=== PATIENT | male | born 1975 | race Caucasian/White ===

== ENCOUNTER 2017-03-31 18:08 | Emergency (ER) | payer OTHER ==
[2017-03-31 21:02] LABS: Basophils # (Auto) 0.1 K/mm3 (0.0-0.1); Basophils % (Auto) 0.7 % (0.0-1.8); Eosinophils # (Auto) 1.3 K/mm3 (0.0-0.4); Eosinophils % (Auto) 10.5 % (0.0-4.3); Hematocrit 48.9 % (35.5-45.6); Hemoglobin 16.4 gm/dl (11.8-15.2); Lymphocytes # (Auto) 3.5 K/mm3 (1.2-5.4); Lymphocytes % (Auto) 28.8 % (13.4-35.0); Mean Corpuscular HGB Conc 34 % (32-34); Mean Corpuscular Hemoglobin 31 pg (28-32); Mean Corpuscular Volume 92 fl (84-94); Monocytes # (Auto) 0.9 K/mm3 (0.0-0.8); Monocytes % (Auto) 7.7 % (0.0-7.3); Platelet Count 229 K/mm3 (140-440); Red Blood Count 5.33 M/mm3 (3.65-5.03); Red Cell Distribution Width 13.1 % (13.2-15.2)
[2017-03-31 21:06] LABS: Bilirubin,Urine NEG (Negative); Blood,Urine NEG (Negative); Color,Urine Yellow (Yellow); Nitrite,Urine NEG (Negative); Protein,Urine <15 mg/dL mg/dL (Negative); Urobilinogen,Urine < 2.0 mg/dL (<2.0)
[2017-03-31 21:09] LABS: Alanine Aminotransferase 75 units/L (7-56); Albumin 4.3 g/dL (3.9-5); BUN/Creatinine Ratio 27; Blood Urea Nitrogen 19 mg/dL (9-20); Calcium 9.3 mg/dL (8.4-10.2); Hemolysis Index 10
[2017-03-31 21:13] LABS: WBC,Urine < 1.0 /HPF (0.0-6.0)
[2017-04-01] MEDS ORDERED: TORADOL IV ONE (12:19)
--- NOTE | 2017-04-01 14:51 | Cat Scan Report ---
FINAL REPORT EXAM: CT ABDOMEN PELVIS W CON HISTORY: zander-umbilical abd pain and hernia, no vomiting TECHNIQUE: CT examination of the ABDOMEN after IV contrast CT examination of the PELVIS after IV contrast PRIORS: None. FINDINGS: Slight cardiomegaly without pericardial effusion. Normal-appearing liver, gallbladder, adrenals, pancreas, and spleen. Intact normal caliber abdominal aorta and IVC. Normal-appearing kidneys and visible ureteral segments. Small fat containing umbilical hernia with transverse dimension of 41 mm and AP dimension of 41 mm. Sagittal dimension is 3.8 cm. There is minimal fat stranding within the herniated fat which may reflect mild edema, inflammation, or infection. No retroperitoneal adenopathy. No evidence of mesenteric mass. Normal-appearing stomach and duodenum. No small bowel distention in the abdomen and pelvis. No pelvic free fluid. Normal-appearing urinary bladder, prostate, seminal vesicles, and rectum. Slight descending and moderate sigmoid diverticulosis without evidence of acute inflammation. No gross ascites, free air, or colonic distention. Normal-appearing cecum, terminal ileum, and appendix. IMPRESSION: Small umbilical hernia containing only fat. Minimal stranding within the herniated fat may be mild edema, inflammation, or infection Slight cardiomegaly without pericardial effusion Slight descending and moderate sigmoid diverticulosis without acute inflammation
--- NOTE | 2017-04-01 15:03 | Emergency Department Report ---
HPI - General Chief Complaint: Abdominal Pain Time Seen by Provider: 04/01/17 11:22 - HPI HPI: The patient is a 42-year-old male whom presents for evaluation of abdominal pain. Patient has a history of periumbilical hernia. The patient reports recurrent abdominal pain for the past 2 months, worsened for the past one day, 8 /10 in severity, crampy in quality, exacerbated with lifting heavy objects, improved with rest and lying flat. The patient denies fever, chills, night sweats, diarrhea, blood in the stool, dark tarry stool, dysuria, hematuria, flank pain, genital discharge, inability to pass flatus. ED Past Medical Hx - Past Medical History Previous Medical History?: No - Surgical History Past Surgical History?: No - Social History Smoking Status: Never Smoker Substance Use Type: None - Medications Home Medications: Home Medications Medication Instructions Recorded Confirmed Last Taken Type HYDROcodone/APAP 7.5-325 [[place] 1 each PO Q8HR PRN #14 tablet 04/01/17 Unknown Rx 7.5-325 mg TAB] Ibuprofen [Motrin] 800 mg PO Q8HR PRN #15 tablet 04/01/17 Unknown Rx Ondansetron [Zofran TAB] 4 mg PO Q8HR PRN #15 tablet 04/01/17 Unknown Rx ED Review of Systems ROS: Stated complaint: INCARCERATED UMBILICAL HERNIA Other details as noted in HPI Constitutional: denies: fever ENT: denies: throat or neck pain Respiratory: denies: cough, shortness of breath Cardiovascular: denies: chest pain Endocrine: denies unexplained weight loss or gain Gastrointestinal:reports abdominal pain, nausea Genitourinary: denies: dysuria Musculoskeletal: denies: leg swelling Skin: denies: rash Neurological: denies: headache Hematological/Lymphatic: denies: easy bleeding or easy bruising Psych: denies sadness or hopelessness Physical Exam - Physical Exam Vital Signs: Vital Signs 03/31/17 04/01/17 04/01/17 19:54 03:37 10:48 Temperature 97.1 F L 97.6 F 97.8 F Pulse Rate 94 H 98 H 87 Respiratory 18 18 18 Rate Blood Pressure 150/101 148/101 Blood Pressure 152/97 [Left] O2 Sat by Pulse 98 98 100 Oximetry Physical Exam: General: well-nourished, well-developed, no acute distress Head: Normocephalic, atraumatic Eyes: normal sclera ENT: Mucous membranes are pink and moist Neck: trachea midline, neck supple, No neck stiffness, no cervical adenopathy Respiratory: Breath sounds equal bilaterally, no wheezing, rales, or rhonchi Cardio: S1 and S2 present, no murmurs, rubs, gallops, capillary refill is brisk Abdomen: Normoactive bowel sounds, soft abdomen, periumbilical and epigastric tenderness, no rigidity, no guarding or rebound tenderness Chest WALL/Back: No tenderness to palpation of the chest wall, no CVA tenderness with percussion Musc: No pitting edema Skin: No rash Neuro: no facial drooping, normal speech Psych: Normal affect ED Course Vital Signs 03/31/17 04/01/17 04/01/17 19:54 03:37 10:48 Temperature 97.1 F L 97.6 F 97.8 F Pulse Rate 94 H 98 H 87 Respiratory 18 18 18 Rate Blood Pressure 150/101 148/101 Blood Pressure 152/97 [Left] O2 Sat by Pulse 98 98 100 Oximetry ED Medical Decision Making - Lab Data Result diagrams: 03/31/17 20:16 03/31/17 20:13 - Medical Decision Making The patient was seen and examined by myself. The patient is placed on a surveillance system monitor and continuous pulse ox. On initial evaluation, the patient was found to be in no distress. Evaluation orders are placed. IV access is established and the patient is given Zofran for nausea, and IV Toradol for pain. Lab results were non-concerning including WBC, hemoglobin, hematocrit, electrolytes, renal function, LFTs, lipase, and urinalysis. CT scan abdomen and pelvis revealed a periumbilical hernia without signs concerning for bowel obstruction or bowel strangulation. The patient was reevaluated and reported that their symptoms were improved. The patient is stable for discharge with outpatient follow-up. The patient is given follow-up and return instructions. The patient expressed understanding and agreed with the plan. The patient is discharged in stable condition. Critical care attestation.: If time is entered above; I have spent that time in minutes in the direct care of this critically ill patient, excluding procedure time. ED Disposition Clinical Impression: Epigastric abdominal pain, Abdominal pain, acute, periumbilical Umbilical hernia Qualifiers: Obstruction and gangrene presence: without obstruction or gangrene Qualified Code(s): K42.9 - Umbilical hernia without obstruction or gangrene Disposition: TO HOME OR SELFCARE Is pt being admited?: No Does the pt Need Aspirin: No Condition: Stable Instructions: Umbilical Hernia (ED), Acute Abdominal Pain (ED) Referrals: PRIMARY MD KUSHAL [Primary Care Provider] - 3-5 Days ELIZABETH MOSQUEDA MD [Staff Physician] - 3-5 Days Time of Disposition: 15:04
[2017-04-01 15:30] VITALS: BP 152/89
== END 2017-04-01 15:29 | disposition home or self-care (01) ==
LOC: ED 18:08
DX: Z53.21 Procedure and treatment not carried out due to patient leaving prior to being seen by health care provider (principal)
CPT/HCPCS: 36415; 74177; 80053; 81001; 85025; J1885; Q9967